=== PATIENT | female | born 1995 | race Caucasian/White ===

== ENCOUNTER 2017-12-18 17:54 | Emergency (ER) | payer SELFPAY | END 2017-12-18 19:05 | disposition left against medical advice (07) | LOC: ED 18:59 | DX: R07.0 Pain in throat (principal); Z53.21 Procedure and treatment not carried out due to patient leaving prior to being seen by health care provider ==

== ENCOUNTER 2018-04-23 09:33 | Emergency (ER) | payer SELFPAY ==
[~2018-04-23] VITALS: Ht 154.9 cm; Wt 65.0 kg
[2018-04-23 09:36] VITALS: BP 102/66
[2018-04-23] MEDS ORDERED: DEXAMETHASONE 4 MG TABLET ONE (10:54)
[2018-04-23] MEDS ORDERED: DEXAMETHASONE 4 MG TABLET PO ONE (11:00)
== END 2018-04-23 11:03 | disposition home or self-care (01) ==
LOC: ED 10:50
DX: J02.0 Streptococcal pharyngitis (principal); Z88.6 Allergy status to analgesic agent; Z87.891 Personal history of nicotine dependence
CPT/HCPCS: 99283